=== PATIENT | female | born 1945 | race Caucasian/White ===

== ENCOUNTER 2019-08-09 06:46 | Day surgery (SDC) | payer MEDICARE ==
[2019-08-08 09:32] VITALS: BMI 44.9
[2019-08-09 08:00] LABS: Hemoglobin 11.8 g/dL (12.0-16.0)
[2019-08-09 08:17] LABS: Anion Gap 16 mmol/L (10-20); BUN (Urea Nitrogen) 42 mg/dL (9.8-20.1); Calc. Creatinine Clearance 71 mL/min (70-130); Calcium 9.8 mg/dL (7.8-10.44); Carbon Dioxide 19 mmol/L (23-31); Chloride 109 mmol/L (98-107); Estimated GFR-MDRD 37; Glucose 144 mg/dL (83-110); Potassium 4.4 mmol/L (3.5-5.1); Sodium 140 mmol/L (136-145)
[2019-08-09] MEDS ORDERED: Fentanyl 100 MCG/2 ML VIAL ONE (09:53)
[2019-08-09] MEDS ORDERED: Lidocaine 2% Jelly 5 ML TUBE ONE (09:53)
[2019-08-09] MEDS ORDERED: Bacitracin Zinc Ointment 30 gm TUBE ONE (10:00)
[2019-08-09] MEDS ORDERED: Lidocaine 1% w/Epinephrine 1:100K 20 ML VIAL ONE (10:00)
[2019-08-09] MEDS ORDERED: Ondansetron PF 4 MG/2 ML Vial ONE (11:48)
[2019-08-09] MEDS ORDERED: PROPOFOL 200 MG/20 ML VIAL ONE (11:48)
[2019-08-09] MEDS ORDERED: Succinylcholine Chloride 20 MG/ML 10 ml SYRINGE FS ONE (11:48)
[2019-08-09] MEDS ORDERED: PHENYLEPHRINE-NS 100 MCG/ML 10 ML SYRINGE ONE (11:48)
[2019-08-09] MEDS ORDERED: Lidocaine 1% PF 5 ML VIAL ONE (11:48)
[2019-08-09] MEDS ORDERED: Labetalol HCl 100 MG/20 ML VIAL ONE (12:36)
--- NOTE | 2019-08-10 08:33 | OP ---
DATE OF PROCEDURE: 08/09/2019 PREOPERATIVE DIAGNOSIS: Right parotid mass. POSTOPERATIVE DIAGNOSIS: Right parotid mass. PROCEDURE PERFORMED: Right superficial parotidectomy with facial nerve monitor. ESTIMATED BLOOD LOSS: 10 mL. COMPLICATIONS: None. ANESTHESIA: GETA. DESCRIPTION OF PROCEDURE: The patient was taken to the operating room, placed supine on the operating room table. General endotracheal anesthesia was obtained by the Anesthesia Staff. Tube was secured in the left lower lip. Shoulder roll was placed and the head was gently tilted to provide exposure of the right face. Facial nerve monitor was inserted into the orbicularis vanessa and the orbicularis oculi muscles. It was noted to be on and remained on throughout the procedure. Following this, the patient was prepped and draped in standard surgical fashion. Following this, a modified Rip incision was made in the preauricular crease and then extending approximately 1 cm to 2 cm around the earlobe and then connecting in a curvilinear fashion onto a horizontal skin crease in the neck approximately 2 cm below the angle of the mandible. Following this, the incision was made through skin, subcutaneous tissue, and the platysmal muscle. Subplatysmal flaps were elevated superiorly and a fat up and fat down skin flap was left. The parotid gland was then dissected off the sternocleidomastoid and retracted anteriorly. Dissection was then carried down the conchal cartilage and tragal cartilage until the mastoid periosteum was encountered. The facial nerve was identified coursing between the styloid and mastoid areas. The nerve was dissected superiorly and the pes anserinus was identified. The 2-cm mass was noted in the superior portion of the superficial parotid lobe, therefore the upper divisions of the facial nerve were dissected out. In doing so, the superior half of the superficial lobe of the right parotid gland was then removed along with the mass. The wound was irrigated. Hemostasis was obtained and a drain was placed in the surgical bed. The wound was then closed using Monocryl stitches on the platysmal layer and subcuticular layer and parotid fascia layer and 4-0 and 5-0 Prolene stitches for the skin. The patient tolerated the procedure well. The facial nerve monitor was turned off at this point of the procedure. Job ID: [id number]
== END 2019-08-09 16:40 | disposition home or self-care (01) ==
LOC: SDC 06:46
PROVIDERS: ATTEND Otolaryngology Plastic Surgery within the Head & Neck
PROC: 0CT80ZZ Resection of Right Parotid Gland, Open Approach (ICD-10-PCS; principal; 2019-08-09)
PROC: 00BM0ZZ Excision of Facial Nerve, Open Approach (ICD-10-PCS; 2019-08-09)
DX: C07 Malignant neoplasm of parotid gland (principal); E11.9 Type 2 diabetes mellitus without complications; I10 Essential (primary) hypertension; Z79.84 Long term (current) use of oral hypoglycemic drugs; Z79.899 Other long term (current) drug therapy; Z88.8 Allergy status to other drugs, medicaments and biological substances
CPT/HCPCS: 80048; 85014; 85018; 88307; 93005; 93010; J2001; J2405; J2704; J3010